=== PATIENT | male | born 1940 | race Caucasian/White ===

== ENCOUNTER 2017-09-18 07:28 | Emergency (ER) | payer OTHER, MEDICARE ==
[~2017-09-18] VITALS: Ht 172.7 cm; Wt 130.2 kg
[~2017-09-18 07:28] MED LIST: ATORVASTATIN CA40 MG PO; Ecotrin PO; KEFLEX500 MG PO; LOPRESSOR 12.12.5 MG PO; NOVOLOG100 U/ML SC
--- NOTE | 2017-09-18 07:38 | ED ANKLE/FOOT INJURY COMPLAINT ---
History of Present Illness General Chief Complaint: General Adult Stated Complaint: BIBA BLEEDING TO WOUND ON FOOT Source: patient, old records, EMS Exam Limitations: no limitations Vital Signs & Intake/Output Vital Signs & Intake/Output Vital Signs Date Time Temp Pulse Resp B/P B/P Pulse O2 O2 Flow FiO2 Mean Ox Delivery Rate 09/18 1028 98.2 72 20 140/72 95 Room Air 09/18 0730 98.0 76 18 146/68 95 Room Air Allergies Coded Allergies: ciprofloxacin (From CIPRO) (UNKNOWN 09/18/17) oxycodone (From PERCOCET) (NAUSEA 09/18/17) metformin (DIARRHEA 09/18/17) Uncoded Allergies: SPECIAL SHEETS LAST ADMISSION (Mild, RASH 08/16/11) Reconcile Medications Allopurinol 300 MG TABLET 1 TAB PO DAILY GOUT (Reported) Amlodipine (Norvasc) 2.5 MG TABLET 1 TAB PO DAILY HEART (Reported) Aspirin (Ecotrin*) 81 MG TABLET.DR 1 TAB PO DAILY HEART HEALTH (Reported) Atorvastatin Calcium 40 MG TABLET 1 TAB PO DAILY CHOLESTEROL (Reported) Carvedilol 12.5 MG TABLET 1 TAB PO BID HTN (Reported) Ceftriaxone Sodium (Ceftriaxone) 1 GRAM VIAL 1 GM IV DAILY OSTEOMYELITIS ( Reported) Clopidogrel Bisulfate (Plavix) 75 MG TABLET 1 TAB PO DAILY BLOOD THINNER ( Reported) Collagenase Clostridium Hist. (Santyl) 250 UNIT/GRAM OINT...G. 1 [place] TOP DAILY WOUND (Reported) Cyanocobalamin (Vitamin B-12) 1,000 MCG TABLET 1 TAB PO DAILY VITAMIN SUPPORT (Reported) Ferrous Sulfate 325 MG (65 MG IRON) TABLET 1 TAB PO BID ANEMIA (Reported) Furosemide (Lasix) 40 MG TABLET 1 TAB PO BID WATER RETENTION (Reported) Gabapentin 100 MG CAPSULE 2 CAP PO TID NEUROPATHY (Reported) Glipizide (Glucotrol XL) 10 MG TAB.ER.24 1 TAB PO DAILY DIABETES (Reported) Insulin Glargine,Hum.rec.anlog (Basaglar Kwikpen U-100) 100 UNIT/ML (3 ML) INSULN.PEN 70 UNITS SC BID DIABETES (Reported) Magnesium Oxide 400 MG TABLET 2 TAB PO BID SUPPLEMENT (Reported) Metolazone 2.5 MG TABLET 1 TAB PO DAILY UNKNOWN (Reported) Multivitamin (Daily Multiple Vitamin) 1 EACH TABLET 1 TAB PO DAILY VITAMIN SUPPORT (Reported) Potassium Chloride 20 MEQ TAB.ER.PRT 2 TAB PO DAILY SUPPLEMENT (Reported) Risperidone (Risperdal) 0.25 MG TABLET 1 TAB PO QPM ANXIETY (Reported) Risperidone (Risperdal) 0.5 MG TABLET 1 TAB PO QPM ANXIETY (Reported) Tamsulosin HCl (Flomax) 0.4 MG CAP.ER.24H 2 CAP PO DAILY BPH (Reported) Vancomycin HCl 1 GRAM VIAL 1,500 MG IV Q18H OSTEOMYELITIS (Reported) Vortioxetine Hydrobromide (Trintellix) 5 MG TABLET 1 TAB PO DAILY DEPRESSION (Reported) Triage Nurses Notes Reviewed? yes HPI: Patient presents with bleeding to his left heel. Patient had recent surgery for wound debridement. Patient is on Plavix. The surgery was done in [place]. Patient is at short-term rehabilitation. Patient states that they removed the wound VAC yesterday and yesterday evening it began to bleed. Patient denies any pain. EMS attempted to bring him to the local hospital however the line diversion so he came here. Past History Travel History Traveled to [place] past 21 day No Medical History Any Pertinent Medical History? 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 No Review of Systems Review of Systems Constitutional: Reports: no symptoms. Respiratory: Reports: no symptoms. Cardiovascular: Reports: no symptoms. GI: Reports: no symptoms. Musculoskeletal: Reports: see HPI. Neurological/Psychological: Reports: no symptoms. Hematologic/Endocrine: Reports: see HPI, bleeding. Immunologic/Allergic: Reports: no symptoms. Physical Exam Physical Exam General Appearance: well developed/nourished, alert, awake Eyes: Bilateral: PERRL, EOMI. Neck: normal inspection, supple Cardiovascular/Respiratory: normal breath sounds, normal peripheral pulses, regular rate/rhythm, no respiratory distress Leg/Knee/Thigh Left: normal range of motion, normal inspection Leg/Knee/Thigh Right: normal range of motion, normal inspection Foot Left: lEFT HEEL SHOWS A SLOW OOZE OF BLOOD. FROM tHE DEBRIDED AREA. Neuro/Vascular: normal motor function Progress Differential Diagnosis: bLEEDING ULCER Plan of Care: Orders Procedure Date/time Status Heart Healthy Diet 09/18 B Active Comments: Bleeding controlled. Patient is stable for discharge. Departure Departure Disposition: ACUTE REHAB FACILITY Condition: Stable Clinical Impression Primary Impression: Bleeding from wound Referrals: Ej Mitchell MD (PCP/Family) Departure Forms: Customer Survey General Discharge Information Referrals: Ej Mitchell MD (PCP/Family) Departure Forms: Customer Survey General Discharge Information
[2017-09-18] MEDS ORDERED: NORVASC2.5 M1 PO (07:57)
[2017-09-18] MEDS ORDERED: ALLOPURINOL300 M1 PO (07:57)
[2017-09-18] MEDS ORDERED: ASPIRIN EC81 M1 PO (07:58)
[2017-09-18] MEDS ORDERED: VITAMIN B-121000 MC3 PO (07:59)
[2017-09-18] MEDS ORDERED: ATORVASTATIN CA40 M1 PO (07:59)
[2017-09-18] MEDS ORDERED: CARVEDILOL12.5 M1 PO (08:00)
[2017-09-18] MEDS ORDERED: BASAGLAR K100 UNIT/1 SC (08:00)
[2017-09-18] MEDS ORDERED: CEFTRIAXONE1 G1 IV (08:02)
[2017-09-18] MEDS ORDERED: FERROUS SULFAT325 M3 PO (08:02)
[2017-09-18] MEDS ORDERED: GABAPENTIN100 M2 PO (08:03)
[2017-09-18] MEDS ORDERED: FLOMAX0.4 M1 PO (08:03)
[2017-09-18] MEDS ORDERED: LASIX40 M1 PO (08:04)
[2017-09-18] MEDS ORDERED: GLUCOTROL XL10 MG PO (08:04)
[2017-09-18] MEDS ORDERED: MAGNESIUM OXID400 M1 PO (08:05)
[2017-09-18] MEDS ORDERED: DAILY MULTIPLE1 EACH PO (08:06)
[2017-09-18] MEDS ORDERED: POTASSIUM CHLO20 ME2 PO (08:07)
[2017-09-18] MEDS ORDERED: PLAVIX75 M1 PO (08:07)
[2017-09-18] MEDS ORDERED: RISPERDAL0.25 M1 PO (08:08)
[2017-09-18] MEDS ORDERED: RISPERDAL0.5 M1 PO (08:09)
[2017-09-18] MEDS ORDERED: TRINTELLIX5 MG PO (08:11)
[2017-09-18] MEDS ORDERED: SANTYL30 GM TOP (08:11)
[2017-09-18] MEDS ORDERED: VANCOMYCIN HCL1 G1 IV (08:14)
[2017-09-18] MEDS ORDERED: METOLAZONE2.5 M1 PO (08:15)
[2017-09-18 10:28] VITALS: BP 140/72
== END 2017-09-18 10:35 ==
LOC: ERH 07:28
DX: L76.21 Postprocedural hemorrhage of skin and subcutaneous tissue following a dermatologic procedure (principal)